=== PATIENT | male | born 1980 | race Caucasian/White ===

== ENCOUNTER 2021-11-23 19:50 | Emergency (ER) | payer MEDICAID ==
[~2021-11-23] VITALS: Ht 157.5 cm; Wt 85.6 kg
[2021-11-23] MEDS ORDERED: IBUPROFEN 600MG TABLET PO ONE (22:15)
[2021-11-24 00:01] VITALS: BP 138/79
== END 2021-11-24 00:03 | disposition home or self-care (01) ==
LOC: ER 19:50
DX: S49.81XA Other specified injuries of right shoulder and upper arm, initial encounter (principal); X50.0XXA Overexertion from strenuous movement or load, initial encounter; Y93.B3 Activity, free weights; Y92.89 Other specified places as the place of occurrence of the external cause
CPT/HCPCS: 73030; 99283

== ENCOUNTER 2023-03-22 01:02 | Emergency (ER) | payer MEDICAID, MEDICARE ==
[~2023-03-22] VITALS: Ht 165.1 cm; Wt 86.3 kg
[2023-03-22 01:44] VITALS: BP 129/76; PULSE 88; RESP 17; TEMP 97.9; O2SAT 98
== END 2023-03-22 02:01 | disposition left against medical advice (07) ==
LOC: ER 01:02
DX: Z53.21 Procedure and treatment not carried out due to patient leaving prior to being seen by health care provider (principal)
CPT/HCPCS: 99281

== ENCOUNTER 2024-07-16 17:25 | Emergency (ER) | payer MEDICAID, MEDICARE ==
[~2024-07-16] VITALS: Ht 162.6 cm; Wt 86.2 kg
[2024-07-16 17:30] VITALS: BP 147/90; RESP 18; TEMP 98.9; O2SAT 100
[2024-07-16 17:41] VITALS: PULSE 113; O2SAT 97
== END 2024-07-16 19:41 | disposition left against medical advice (07) ==
LOC: ER 17:25
DX: R19.7 Diarrhea, unspecified (principal); Z53.21 Procedure and treatment not carried out due to patient leaving prior to being seen by health care provider